=== PATIENT | male | born 1980 | race Caucasian/White ===

== ENCOUNTER 2018-02-05 13:15 | Emergency (ER) | payer SELFPAY ==
[2018-02-05] MEDS ORDERED: Ibuprofen 800 MG Tab PO ONE (13:53)
--- NOTE | 2018-02-05 13:53 | EDM.PDOC ---
ED HPI GENERAL MEDICAL PROBLEM - General Chief Complaint: Lower Extremity Injury/Pain Stated Complaint: RT KNEE INJURY Time Seen by Provider: 02/05/18 13:43 Source of Information: Reports: Patient - History of Present Illness INITIAL COMMENTS - FREE TEXT/NARRATIVE: Patient is here for evaluation of an injury to his right knee. He states that he was on a ladder yesterday, he was operating a hammer drill and did fall off of the ladder. He states he landed on his feet but then felt his knee twist and he fell down. No direct injury to his knee. Patient states that he was able to continue the day working but had significant pain to his right knee. He is here today for evaluation as his knee pain has not improved. Denies previous injury to this knee. Has not tried any medication or home treatment. Right Knee Pain Score (Numeric/FACES): 10 - Related Data Allergies Allergy/AdvReac Type Severity Reaction Status Date / Time aspirin Allergy Vomiting Verified 02/05/18 13:22 Home Meds: Home Meds . [No Known Home Meds] 02/05/18 [History] Past Medical History - Past Health History Medical/Surgical History: Denies Medical/Surgical History Social & Family History - Tobacco Use Smoking Status *Q: Current Every Day Smoker Years of Tobacco use: 20 Packs/Tins Daily: 0.5 - Recreational Drug Use Recreational Drug Use: Yes Drug Use in Last 12 Months: Yes Recreational Drug Type: Reports: Marijuana/Hashish Review of Systems - Review of Systems Review Of Systems: See Below Musculoskeletal: Reports: Other (Right knee pain) Skin: Reports: No Symptoms Neurological: Reports: No Symptoms ED EXAM, GENERAL - Physical Exam Exam: See Below Exam Limited By: No Limitations General Appearance: Alert, WD/WN, No Apparent Distress Peripheral Pulses: 2+: Posterior Tibial (L), Posterior Tibial (R) Extremities: Other (Mild swelling to right knee. Tenderness to bilateral joint line. Full range of motion of the right knee without difficulty. Anterior/ posterior drawer negative. Patient had increase in pain with medial David's. ) Neurological: Alert, Oriented, No Motor/Sensory Deficits Psychiatric: Normal Affect Skin Exam: Warm, Dry, Intact, Other (Numerous tattoos.) Course - Vital Signs Last Recorded V/S: Last Vital Signs Temp 97.5 F 02/05/18 13:22 Pulse 77 02/05/18 13:22 Resp 16 02/05/18 13:22 BP 118/76 02/05/18 13:22 Pulse Ox 100 02/05/18 13:22 - Orders/Labs/Meds Orders: Active Orders 24 hr Category Date Time Status Durable Medical Equipment for Discharge [DME for Oth 02/05/18 15:52 Ordered Discharge] [COMM] Stat Meds: Medications Discontinued Medications Generic Name Dose Route Start Last Admin Trade Name Dong PRN Reason Stop Dose Admin Ibuprofen 800 mg 02/05/18 13:53 02/05/18 13:57 Motrin PO 02/05/18 13:54 800 mg ONETIME ONE Administration - Re-Assessments/Exams Free Text/Narrative Re-Assessment/Exam: X-ray demonstrates slight medial joint space narrowing but no other abnormality. Patient did have some increase in pain with medial David, may have possible meniscal injury. At present will immobilize the knee and have patient use crutches and be nonweightbearing for the next 7-10 days. Work note was given for these restrictions. Recommend ibuprofen, ice 15 minutes every 2-3 hours. If patient's pain should worsen or persist may need to consider MRI on an outpatient basis. He will follow-up in the clinic or return to the emergency room if needed. 02/05/18 20:46 Departure - Departure Time of Disposition: 15:52 Disposition: Home, Self-Care 01 Condition: Good Clinical Impression: Knee injury Qualifiers: Encounter type: initial encounter Laterality: right Qualified Code(s): S89.91XA - Unspecified injury of right lower leg, initial encounter Knee pain, acute Qualifiers: Laterality: right Qualified Code(s): M25.561 - Pain in right knee - Discharge Information Instructions: Crutch Use, Adult, [id number], Knee Pain, Adult Referrals: Neto Stevenson PA [Emergency Provider] - Forms: ED Department Discharge, ED Return to Work/School Form Additional Instructions: You were evaluated in the emergency room today for injury of the right knee. X-ray demonstrates no fracture or asymmetry related to tendon tear. Recommend rest, do not bear weight to this for 1 week use your knee brace and crutches. Ice 15 minutes every 2-3 hours. ibuprofen 800 mg 3 times a day, be sure to drink lots of water with this. Follow-up with Neto Stevenson PA-C in the clinic ([phone]) if pain persists beyond 10 days or any worsening of pain. Certainly you may return to the emergency room if needed. - My Orders Last 24 Hours: My Active Orders 02/05/18 15:52 Durable Medical Equipment for Discharge [DME for Discharge] [COMM] Stat - Assessment/Plan Last 24 Hours: My Active Orders 02/05/18 15:52 Durable Medical Equipment for Discharge [DME for Discharge] [COMM] Stat
--- NOTE | 2018-02-05 15:07 | CR ---
Right knee: AP, lateral and sunrise patellar views of the right knee were obtained. Comparison: No previous study. Slight medial joint space narrowing is seen as compared to the lateral joint. Patellofemoral joint is preserved. No joint effusion seen. No fracture or other bony abnormality is seen. Impression: 1. Slight medial joint space narrowing. 2. Three-view right knee exam is otherwise unremarkable. Diagnostic code #2
== END 2018-02-05 16:20 | disposition home or self-care (01) ==
LOC: JD.ED 13:15
DX: S89.91XA Unspecified injury of right lower leg, initial encounter (principal); F17.210 Nicotine dependence, cigarettes, uncomplicated; Z88.8 Allergy status to other drugs, medicaments and biological substances; Z79.899 Other long term (current) drug therapy; W11.XXXA Fall on and from ladder, initial encounter
CPT/HCPCS: 73562; 99283; A9270